=== PATIENT | female | born 1995 | race Caucasian/White ===

== ENCOUNTER → 2016-09-22 00:31 | Emergency (ER) | payer OTHER ==
[~2016-09-22 00:31] MED LIST: NS 0.9% 1000 ML* 1,000 ML IV ONE; Ondansetron INJ* 2 MG/ML VIAL IV ONE; Ondansetron INJ* 2 MG/ML VIAL ONE
--- NOTE | 2016-09-22 02:20 | ED ---
GI/ HPI - HPI Summary HPI Summary: Pt here w/ vomiting at 18:30, 3 hours after she stopped drinking ETOH - had 7 drnks in 5 hours - way more ETOH than she's used to and quicker than usual as well. Denies acute ab pain but is a little sore after vomiting multiple times which is why she came in tonight. 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 Pain Intensity: 0 - Allergy/Home Medications Allergies/Adverse Reactions: Allergies Allergy/AdvReac Type Severity Reaction Status Date / Time Penicillins [PCN] Allergy Hives Verified 09/22/16 00:54 Home Medications: Home Medications Amphetamine/Dextroamph ER(NF) [Adderal XR (NF)] 25 mg PO DAILY 09/22/16 [ History Confirmed 09/22/16] PMH/Surg Hx/FS Hx/Imm Hx Previously Healthy: Yes - Immunization History Date of Tetanus Vaccine: utd Date of Influenza Vaccine: unk Infectious Disease History: No Infectious Disease History: Denies: Traveled Outside the [place] in Last 30 Days - Social History Alcohol Use: Occasionally Substance Use Type: Reports: None Smoking Status (MU): Never Smoked Tobacco Physical Exam Vital Signs On Initial Exam: Initial Vitals Temp Pulse Resp BP Pulse Ox 97.9 F 96 18 123/78 96 09/22/16 00:38 09/22/16 00:38 09/22/16 00:38 09/22/16 00:38 09/22/16 00:38 - [place] Coma Scale Coma Scale Total: 15 Diagnostics - Vital Signs Vital Signs Temp Pulse Resp BP Pulse Ox 09/22/16 00:51 98.7 F 88 14 117/53 98 09/22/16 00:38 97.9 F 96 18 123/78 96 - Laboratory Lab Statement: Any lab studies that have been ordered have been reviewed, and results considered in the medical decision making process. Re-Evaluation - Re-Evaluation First Eval Change: Improved - nausea and vomiting resolved after IVF and zofran - denies pain - requesting to eat - okay to go home GIGU Course/Dx - Diagnoses Provider Diagnoses: Alcohol causing toxic effect Discharge - Discharge Plan Condition: Stable Disposition: HOME Patient Education Materials: Alcohol Intoxication (ED) Referrals: [facility] [Outside] Additional Instructions: Clear liquids for 24 hours - advance to bland diet as tolerated - avoid alcohol , stimulants (ie. chocolate, coffee, cola, tea, etc) Follow-up with [facility] if you do not improve completely *If worse, return to ED
[2016-09-22 02:29] VITALS: BP 103/68
== END | disposition home or self-care (01) ==
LOC: ED 00:31
DX: F10.10 Alcohol abuse, uncomplicated (principal); R11.10 Vomiting, unspecified
CPT/HCPCS: 96374; 96375; 99282; J2405